=== PATIENT | female | born 1965 | race African-American/Black ===

== ENCOUNTER 2016-08-18 13:30 | Day surgery (SDC) | payer OTHER ==
[~2016-08-18] VITALS: Ht 149.9 cm; Wt 46.3 kg
[2016-08-18 14:35] VITALS: Ht 149.9 cm; Wt 46.3 kg
[2016-08-18 15:01] VITALS: BP 130/84; PULSE 74; RESP 18
[2016-08-18] MEDS ORDERED: MIDAZOLAM 1 MG/ML 2 ML INJ ONE ×3 (15:57)
[2016-08-18] MEDS ORDERED: FENTAnyl 50 MCG/ML VIAL ONE ×2 (15:58)
[2016-08-18 16:10] VITALS: BP 141/83; PULSE 68; RESP 18
--- NOTE | 2016-08-19 03:15 | GILP ---
DATE OF PROCEDURE: NAME OF PROCEDURES: Colonoscopy and biopsy. SURGEON: Dori Bates MD PREOPERATIVE DIAGNOSES: 1. Rectal pain. 2. Change in the bowel habit. 3. Screening colonoscopy. POSTOPERATIVE DIAGNOSES 1. Colonoscopy all the way to the cecum. 2. Internal hemorrhoids. 3. Stool was collected for ova and parasites. 4. Random biopsies were taken to rule out microscopic colitis. INDICATION FOR THE PROCEDURE: Ms. Joseline Glover is a 50-year-old female patient who was complai harmeet of rectal pain and change in the bowel habit. The patient never had screening colonoscopy. Th e patient also felt that she has got parasites in the stool. The procedure and possible complications are well explained to the patient, she understood and conse nted to the procedure. DESCRIPTION OF PROCEDURE: Under the influence of fentanyl and Versed, the colonoscope was carefully introduced in the rectum and under direct vision, it was advanced all the way to the cecum. FINDINGS: The patient had internal hemorrhoids. Stool was collected for ova and parasites Random b iopsies were taken to rule out microscopic colitis. No colon neoplasm was identified. She tolerated the procedure very well and there was no complication from the procedure. At the end of the procedures, she was awake with stable vital signs and she was discharged home to the care of her family. IMPRESSION: 1. Colonoscopy all the way to the cecum. 2. Internal and external hemorrhoids. 3. Stool was collected for ova and parasites. 4. Random biopsies were taken to rule out microscopic colitis. PLAN 1. Anusol-HC 2.5% cream b.i.d. 2. Await stool analysis report as well as the biopsy report. 3. Next screening colonoscopy in 10 years. Dictated By: DORI BARNETT/KELLEE Conf#: [id number] DID#: [id number]
== END 2016-08-18 16:50 | disposition home or self-care (01) ==
LOC: GIL 13:30
PROVIDERS: ATTEND Internal Medicine Gastroenterology
DX: Z12.11 Encounter for screening for malignant neoplasm of colon (principal); K64.8 Other hemorrhoids; K64.4 Residual hemorrhoidal skin tags
CPT/HCPCS: 45380; 87177; J2250; J3010; Z7610; 88305